=== PATIENT | male | born 1970 | race Caucasian/White ===

== ENCOUNTER 2017-11-18 17:25 | Outpatient (CLI) | payer OTHER ==
[~2017-11-18 17:25] MED LIST: CEFADROXIL500 MG PO; FLONASE16 GM NASAL; GILTUSS TR TAB1 EACH PO; LOPRESSOR25 MG; ZITHROMAX TRI-500 MG PO; ZYRTEC10 MG PO
== END 2017-11-18 17:30 | disposition home or self-care (01) ==
LOC: RAD 17:25
DX: R05 Cough (principal)